=== PATIENT | female | born 1965 | race Caucasian/White ===

== ENCOUNTER 2023-12-18 19:01 | Emergency (ER) | payer MEDICAID ==
[~2023-12-18] VITALS: Ht 154.9 cm; Wt 72.7 kg
[2023-12-18 19:06] VITALS: BP 161/85; PULSE 98; RESP 16; TEMP 98.5
[2023-12-18 20:02] LABS: EOSINOPHILS % (AUTO) 1.1 % (1.0-6.0); HEMATOCRIT 41.4 % (36-46); HEMOGLOBIN 14.3 g/dL (12.0-16.0); LYMPHOCYTES # (AUTO) 4.6 K/uL (1.0-4.8); LYMPHOCYTES % (AUTO) 43.8 % (22.0-44.0); MEAN CORPUSCULAR HEMOGLOBIN 31.7 pg (26.0-34.0); MEAN CORPUSCULAR HGB CONC 34.6 G/dL (31.0-37.0); MEAN CORPUSCULAR VOLUME 92 fL (80-100); MONOCYTES # (AUTO) 0.7 K/uL (0.1-1.0); MONOCYTES % (AUTO) 6.9 % (2.0-9.0); NEUTROPHILS % (AUTO) 47.2 % (40.0-70.0); PLATELET COUNT (AUTO) 224 K/uL (150-450); RED BLOOD CELL COUNT(AUTO) 4.52 MIL/uL (4.00-5.20); RED CELL DISTRIBUTION WIDTH 13.6 % (11.5-14.5); WHITE BLOOD COUNT (AUTO) 10.6 K/uL (4.5-11.0)
[2023-12-18 20:12] LABS: ANION GAP 10 mmol/L (8-16); CALCIUM, TOTAL 9.3 mg/dL (8.8-10.5); CARBON DIOXIDE 25 mmol/L (22-29); CHLORIDE 103 mmol/L (98-107); CREATININE 0.87 mg/dL (0.60-1.30); GLOMERULAR FILTR. RATE CALC > 60 mL/min (>60); GLUCOSE,RANDOM 126 mg/dL (70-110); POTASSIUM 3.7 mmol/L (3.5-5.1); SODIUM SERUM 138 mmol/L (136-145); UREA NITROGEN, BLOOD 10 mg/dL (7-18)
[2023-12-18 20:17] LABS: ALANINE AMINOTRANSFERASE 161 U/L (12-78); ALBUMIN 3.5 g/dL (3.4-5.0); ALKALINE PHOSPHATASE 230 U/L (46-116); ASPARTATE AMINOTRANSFERASE 112 U/L (15-37); BILIRUBIN,TOTAL 0.4 mg/dL (0.1-1.0); TOTAL PROTEIN, SERUM 8.1 g/dL (6.4-8.2)
[2023-12-19] MEDS: SODIUM CHLORIDE 0.9% 1,000 ML IV ONE (02:22)
== END 2023-12-19 04:46 | disposition home or self-care (01) ==
LOC: EMS 19:01
DX: K80.50 Calculus of bile duct without cholangitis or cholecystitis without obstruction (principal); R79.89 Other specified abnormal findings of blood chemistry
CPT/HCPCS: 99284; 96360; 80048; 80076; 85025; 36415; 74176; 76705; J7030

== ENCOUNTER 2024-03-10 14:50 | Emergency (ER) | payer MEDICAID ==
[~2024-03-10] VITALS: Ht 160 cm; Wt 63.0 kg
[2024-03-10 14:52] VITALS: TEMP 98.1
[2024-03-10] MEDS ORDERED: ATOR20TA65 PO (14:53)
[2024-03-10] MEDS ORDERED: RESM80TA PO (14:53)
[2024-03-10 18:08] VITALS: BP 124/65; PULSE 87; RESP 18; O2SAT 98
[2024-03-10] MEDS ORDERED: IBUP-1492 PO (18:12)
[2024-03-10] MEDS: IBUPROFEN 600 MG TABLET PO ONE (18:24)
== END 2024-03-10 18:31 | disposition home or self-care (01) ==
LOC: EMS 14:50
DX: S63.650A Sprain of metacarpophalangeal joint of right index finger, initial encounter (principal); W23.2XXA Caught, crushed, jammed or pinched between a moving and stationary object, initial encounter; Y93.89 Activity, other specified; Y92.89 Other specified places as the place of occurrence of the external cause; Y99.8 Other external cause status
CPT/HCPCS: 99283